=== PATIENT | female | born 1970 | race African-American/Black ===

== ENCOUNTER → 2017-11-25 | Day surgery (SDC) | payer BC ==
[2017-11-24 17:12] LABS: ANION GAP 11.7 mmol/L (8-16); BLOOD UREA NITROGEN 10 mg/dL (7-26); BUN/CREATININE RATIO 14 (6-25); CALCIUM 8.6 mg/dL (8.4-10.2); CARBON DIOXIDE 24 mmol/L (22-29); CHLORIDE 108 mmol/L (98-107); CREATININE, SERUM 0.74 mg/dL (0.57-1.11); EST GLOMERULAR FILTRATION RATE > 60 ML/MIN (60-); GLUCOSE 138 mg/dL (74-118); POTASSIUM 3.7 mmol/L (3.5-5.1); SODIUM 140 mmol/L (136-145)
[~2017-11-25] MED LIST: ACETAMINOPHEN 1000 MG/100 ML 100 ML IV ONE; ACETAMINOPHEN/CODEINE 300MG - 30MG TAB ONE; BUPIVACAINE HCL 0.5% INJ 30 ML VIAL INJ ONE; CEFAZOLIN SOD 2 GM/D5W 50ML 50 ML IV ONE; DEXAMETHASONE SOD PHOS INJ 4 MG/ML VIAL ONE; FENTANYL CITRATE/PF 100MCG/2 ML INJ ONE; GLIPIZIDE5 MG PO; KETOROLAC TROMETHAMINE 30 MG/ML VIAL ONE; LIDOCAINE HCL 2% LOCAL INJ 5 ML SDV VIAL INJ ONE; METOPROLOL SUCC25 MG; MIDAZOLAM HCL 2 MG/2 ML VIAL ONE; ONDANSETRON HCL INJ 2 MG/ML VIAL ONE; PROPOFOL IV EMULSION 10 MG/ML 20 ML VIAL ONE; SEVOFLURANE INHAL SOLN 250 ML PEN BTL ONE
--- NOTE | 2017-11-26 10:03 | Operative Report ---
DATE OF PROCEDURE: November 25, 2017 PREOPERATIVE DIAGNOSIS: Left ring middle phalanx fracture. POSTOPERATIVE DIAGNOSIS: Left ring middle phalanx fracture. OPERATION/PROCEDURE PERFORMED: The patient underwent a closed reduction and percutaneous pinning of the left ring middle phalanx fracture. ELEVATOR ERECTOR: None. ANESTHESIA: General endotracheal intubation anesthesia. IV FLUIDS: Per the anesthesia record. BRIEF DESCRIPTION OF THE PATIENT'S OPERATIVE PROCEDURE: Ms. Mcconnell was taken to the operating room and placed in the supine position on the operating table. Following induction of general anesthesia, as well as endotracheal intubation, the patient's left upper extremity was examined under anesthesia. She was found to have bruising and ecchymosis involving her hand, and a marked deformity of the ring finger at the level of the middle phalanx. Fluoroscopic evaluation demonstrated an oblique fracture that was shortened and markedly angulated involving the middle phalanx of the ring finger. The patient's upper extremity was prepped and draped in a standard surgical fashion. The case was begun by attempting a closed reduction of the patient's injury. Gentle digital distraction was placed across the ring finger, and this resulted in acceptable realignment of the patient's injury with essential anatomic reduction of the fracture. Two 0.035 pins were then inserted across the patient's fracture site stabilizing the fracture in its reduced position. The position of those pins, as well as reduction of the fracture was then assessed using fluoroscopy and found to be appropriate. The patient's pin sites were dressed sterilely. An aluminum splint was placed over the finger to immobilize the fracture. The patient was then awakened and taken to the postanesthesia care unit in stable condition. Job#: [id number] KATELIN
== END | disposition home or self-care (01) ==
LOC: OR 11:51
PROVIDERS: ATTEND Specialist
DX: S62.625A Displaced fracture of middle phalanx of left ring finger, initial encounter for closed fracture (principal); E11.9 Type 2 diabetes mellitus without complications; I10 Essential (primary) hypertension; Y04.0XXA Assault by unarmed brawl or fight, initial encounter; Z01.810 Encounter for preprocedural cardiovascular examination; Z01.812 Encounter for preprocedural laboratory examination; Z68.41 Body mass index [BMI] 40.0-44.9, adult
CPT/HCPCS: 26727; 36415 ×2; 80048; 82948; 93005; J1100; J1885; J2001; J2250; J2405; 76000